=== PATIENT | male | born 1980 | race Caucasian/White ===

== ENCOUNTER 2016-08-18 06:14 | Emergency (ER) | payer BC ==
[2016-08-18 05:59] LABS: BASOPHIL% 0.2 % (0-2.5); EOSINOPHIL# 0.1 X10e3 (0-0.7); EOSINOPHIL% 0.7 % (0.0-7.0); HEMATOCRIT 48.7 % (38.0-50.0); HEMOGLOBIN 16.5 gm/dL (13.0-16.0); LYMPHOCYTE# 0.6 X10e3 (1.0-3.5); LYMPHOCYTE% 3.4 % (17.0-45.0); MEAN CELL VOLUME 90.2 FL (83-96); MEAN CORPUSCULAR HEMOGLOBIN 30.6 PG (28-34); MEAN PLATELET VOLUME 8.6 FL (6.5-11.5); MONOCYTE# 0.9 X10e3 (0-1.0); MONOCYTE% 5.4 % (3.0-12.0); NEUTROPHIL# 14.7 X10e3 (1.5-7.1); NEUTROPHIL% 90.3 % (40-75); PLATELET COUNT 182 X10e3 (140-420); RED CELL DISTRIBUTION WIDTH 13.8 % (11.0-15.5); WHITE BLOOD COUNT 16.3 X10e3 (4.0-10.5)
[2016-08-18 06:04] LABS: DIFF IND YES
[2016-08-18 06:21] LABS: ALBUMIN SERUM 5.2 g/dL (3.5-5.0); BILIRUBIN, DIRECT 0.2 mg/dL (0.0-0.2); BILIRUBIN,INDIRECT 0.8 mg/dL (0.0-0.9); CALCIUM SERUM 9.1 mg/dL (8.4-10.2); CREATININE SERUM 0.9 mg/dL (0.6-1.4); GLOM FILT RATE Estimated 111.8 mL/min (>60); PROTEIN TOTAL SERUM 8.5 g/dL (6.0-8.3)
[2016-08-18 06:47] LABS: INFLUENZA A NEG (NEG); INFLUENZA B NEG (NEG)
[2016-08-18 06:49] LABS: PLATELET ESTIMATE NORMAL (NORMAL); RBC NORMAL YES
== END 2016-08-18 08:24 | disposition home or self-care (01) ==
LOC: CED 06:14
PROVIDERS: Emergency Medicine
DX: R11.2 Nausea with vomiting, unspecified (principal); R19.7 Diarrhea, unspecified; K21.9 Gastro-esophageal reflux disease without esophagitis; F17.200 Nicotine dependence, unspecified, uncomplicated; Z90.49 Acquired absence of other specified parts of digestive tract
CPT/HCPCS: 36415; 80048; 80076; 83690; 85025; 87804; 96361; 96372; 96374; 99284; J0500; J2405